=== PATIENT | male | born 1980 | race African-American/Black ===

== ENCOUNTER 2020-05-09 14:33 | Inpatient (IN) | payer MEDICAID ==
[~2020-05-09] VITALS: Ht 175.3 cm; Wt 73.5 kg
--- NOTE | 2020-05-09 08:38 | NUR ---
NURSE NOTES: Received pt awake,A&Ox4, and verbal. Pt has no sob,fever,cough and pain at the moment. Iv is intact and asymptomatic. Pt is ambulatory with steady gait. skin is intact. Bed is in the lowest position,locked and call light within reach. We will keep monitoring the pt. Addendum: 05/09/20 at 2148 by THOMAS BOYCE RN discard the note above. Wrong time
--- NOTE | 2020-05-09 14:52 | NUR ---
ED Nurse Note: Pt walked into ED with dysuria x2 weeks. He also has had white discharge in urine and stool. Pt had sexual intercourse 2 weeks ago. Pt is alert and orientedx4, ambulatory. Pt has been seen by CLARA.
--- NOTE | 2020-05-09 14:54 | NUR ---
ED Nurse Note: Pt states he is HIV +.
--- NOTE | 2020-05-09 14:56 | Emergency Room Report ---
History of Present Illness General Chief Complaint: Male Urogenital Problems Source: Patient Present Illness HPI 39-year-old male with history of HIV noncompliant with medications, unaware of the last time he had a CD4 or viral loads checked, here with 1 week of dysuria, hematuria, pus in stool, pus in urine. Patient is also felt generally weak during this time as well. States that he feels sharp pain in the suprapubic region while he is urinating but does not feel any discomfort otherwise. States that he noticed some pus mixed with his stool yesterday. Also feels generalized lower abdominal pain while he is defecating. He does not take any medications for the pain. No other alleviating or exacerbating factors. Munday subjective chills yesterday. No fevers, chest pain, palpitations, back pain, abdominal pain otherwise, nausea, vomiting. 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 Nursing Documentation-[facility] Past Medical History: No History, Except For Hx Hypertension: Yes Review of Systems All Other Systems: negative except mentioned in HPI Physical Exam Vital Signs Date Time Temp Pulse Resp B/P (MAP) Pulse Ox O2 Delivery O2 Flow Rate FiO2 05/09/20 14:38 98.2 116 18 103/65 (78) 95 Room Air Sp02 EP Interpretation: reviewed, normal General Appearance: no apparent distress, alert, non-toxic Head: normocephalic, atraumatic Eyes: bilateral eye normal inspection, bilateral eye PERRL ENT: hearing grossly normal, normal pharynx, no angioedema, normal voice Neck: full range of motion, supple/symm/no masses Respiratory: chest non-tender, lungs clear, normal breath sounds, speaking full sentences Cardiovascular #1: regular rate, rhythm, no edema Cardiovascular #2: 2+ carotid (R), 2+ carotid (L), 2+ radial (R), 2+ radial (L), 2+ dorsalis pedis (R), 2+ dorsalis pedis (L) Gastrointestinal: normal bowel sounds, soft, non-distended, no guarding, no rebound, other - Mild lower abdominal tenderness on palpation diffusely. No rebound or guarding. No distention Rectal: deferred Genitourinary: normal inspection, no CVA tenderness Musculoskeletal: back normal, normal range of motion, calf tenderness, gait/station normal, non-tender Neurologic: alert, motor strength/tone normal, oriented x3, sensory intact, responsive, speech normal Psychiatric: judgement/insight normal, memory normal, mood/affect normal, no suicidal/homicidal ideation Reflexes: 3+ bicep (R), 3+ bicep (L), 3+ tricep (R), 3+ tricep (L), 3+ knee (R), 3+ knee (L) Lymphatic: no adenopathy Medical Decision Making Diagnostic Impression: Primary Impression: Proctitis Additional Impressions: Cystitis HIV (human immunodeficiency virus infection) ER Course EKG: NSR tachycardic 112 bpm. T wave inversions in leads I, 2, aVL, V4, V5, V6. LVH criteria. intervals WNL. No ectopy Rhythm strip: patient monitored for arrhythmias - no malignant dysrhythmias, r uns of PVCs, nor pauses noted Laboratory Tests Test 05/09/20 15:03 05/09/20 15:05 Urine Color Red Urine Appearance Turbid Urine pH 5 (4.5-8.0) Urine Specific [place] 1.025 (1.005-1.035) Urine Protein 3+ (NEGATIVE) H Urine Glucose (UA) Negative (NEGATIVE) Urine Ketones 1+ (NEGATIVE) H Urine Blood 5+ (NEGATIVE) H Urine Nitrite Negative (NEGATIVE) Urine Bilirubin 1+ (NEGATIVE) H Urine Ictotest Negative (NEGATIVE) Urine Urobilinogen 4 MG/DL (0.0-1.0) H Urine Leukocyte Esterase 3+ (NEGATIVE) H Urine RBC Tntc /HPF (0 - 0) H Urine WBC Tntc /HPF (0 - 0) H Urine Squamous Epithelial Cells None /LPF (NONE/OCC) Urine Bacteria Many /HPF (NONE) H White Blood Count 7.8 K/UL (4.8-10.8) Red Blood Count 5.07 M/UL (4.70-6.10) Hemoglobin 15.0 G/DL (14.2-18.0) Hematocrit 45.6 % (42.0-52.0) Mean Corpuscular Volume 90 FL (80-99) Mean Corpuscular Hemoglobin 29.6 PG (27.0-31.0) Mean Corpuscular Hemoglobin Concent 33.0 G/DL (32.0-36.0) Red Cell Distribution Width 11.5 % (11.6-14.8) L Platelet Count 353 K/UL (150-450) Mean Platelet Volume 5.9 FL (6.5-10.1) L Neutrophils (%) (Auto) 74.7 % (45.0-75.0) Lymphocytes (%) (Auto) 16.3 % (20.0-45.0) L Monocytes (%) (Auto) 6.8 % (1.0-10.0) Eosinophils (%) (Auto) 0.4 % (0.0-3.0) Basophils (%) (Auto) 1.8 % (0.0-2.0) Sodium Level 138 MMOL/L (136-145) Potassium Level 4.0 MMOL/L (3.5-5.1) Chloride Level 100 MMOL/L (98-107) Carbon Dioxide Level 28 MMOL/L (21-32) Anion Gap 10 mmol/L (5-15) Blood Urea Nitrogen 16 mg/dL (7-18) Creatinine 1.8 MG/DL (0.55-1.30) H Estimated Glomerular Filtration Rate 50.9 mL/min (>60) Glucose Level 110 MG/DL (74-106) H Lactic Acid Level 1.30 mmol/L (0.4-2.0) Calcium Level 9.3 MG/DL (8.5-10.1) Total Bilirubin 0.4 MG/DL (0.2-1.0) Aspartate Amino Transferase (AST) 17 U/L (15-37) Alanine Aminotransferase (ALT) 24 U/L (12-78) Alkaline Phosphatase 60 U/L (46-116) Total Creatine Kinase 93 U/L (26-308) Creatine Kinase MB 0.9 NG/ML (0.0-3.6) Creatine Kinase MB Relative Index 0.9 Troponin I 0.015 ng/mL (0.000-0.056) Total Protein 8.7 G/DL (6.4-8.2) H Albumin 3.5 G/DL (3.4-5.0) Globulin 5.2 g/dL Albumin/Globulin Ratio 0.7 (1.0-2.7) L 39-year-old male with history of HIV noncompliant with medications here with dysuria and pus in stool. Urinalysis showed evidence of urinary tract infect ion. CT abdomen pelvis showed proctitis. Patient was started on ceftriaxone and azithromycin in the emergency department. Blood cultures currently pending. Urine cultures obtained and currently pending. No evidence of sepsis. Patient was given IV fluids. Troponin negative. EKG however did show T wave inversion in multiple leads. However patient clinically had no evidence of ACS. Was given aspirin in the emergency department. Admitted to [facility] in stable condition. Last Vital Signs Date Time Temp Pulse Resp B/P (MAP) Pulse Ox O2 Delivery O2 Flow Rate FiO2 05/09/20 14:38 98.2 116 18 103/65 (78) 95 Room Air Abilio Kaplan M.D. May 09, 2020 14:56
[2020-05-09 15:00] VITALS: BP 110/68
[2020-05-09] MEDS ORDERED: Omnipaque-300 100ml vial INJ PRN (15:00)
[2020-05-09 15:18] LABS: BASOPHILS % (AUTO) 1.8 % (0.0-2.0); EOSINOPHILS % (AUTO) 0.4 % (0.0-3.0); HEMATOCRIT 45.6 % (42.0-52.0); LYMPHOCYTES % (AUTO) 16.3 % (20.0-45.0); MEAN CORPUSCULAR VOLUME 90 FL (80-99); MONOCYTES % (AUTO) 6.8 % (1.0-10.0); NEUTROPHILS % (AUTO) 74.7 % (45.0-75.0); PLATELET COUNT 353 K/UL (150-450); RED BLOOD COUNT 5.07 M/UL (4.70-6.10); RED CELL DISTRIBUTION WIDTH 11.5 % (11.6-14.8); WHITE BLOOD COUNT 7.8 K/UL (4.8-10.8)
[2020-05-09 15:19] LABS: APPEARANCE,URINE TURBID; BILIRUBIN, URINE 1+ (NEGATIVE); GLUCOSE, URINE (UA) NEGATIVE (NEGATIVE); KETONES,URINE 1+ (NEGATIVE); LEUKOCYTE ESTERASE ,URINE 3+ (NEGATIVE); NITRITE,URINE NEGATIVE (NEGATIVE); PH,URINE 5 (4.5-8.0); PROTEIN,URINE 3+ (NEGATIVE); UROBILINOGEN,URINE 4 MG/DL (0.0-1.0)
[2020-05-09 15:28] LABS: CALCIUM 9.3 MG/DL (8.5-10.1); CREATININE 1.8 MG/DL (0.55-1.30)
[2020-05-09 15:42] LABS: COLOR,URINE RED
[2020-05-09 15:42] LABS: ALBUMIN 3.5 G/DL (3.4-5.0); ALBUMIN/GLOBULIN RATIO 0.7 (1.0-2.7); BILIRUBIN,TOTAL 0.4 MG/DL (0.2-1.0); CKMB 0.9 NG/ML (0.0-3.6)
[2020-05-09] MEDS ORDERED: cefTRIAXone 1 GM in NS 55 ML IVPB ONE (16:00)
--- NOTE | 2020-05-09 16:07 | Diagnostic Imaging Report ---
Indication: Shortness of Technique: One view of the chest Comparison: none Findings: Lungs and pleural spaces are clear. Heart size is normal. Impression: No acute process
[2020-05-09] MEDS ORDERED: Azithromycin 250mg tab ORAL ONE (16:15)
--- NOTE | 2020-05-09 16:41 | Diagnostic Imaging Report ---
Clinical Indication: Dysuria, hematuria, purulent stool and urine Technique: No oral contrast utilized, per emergency room physician request IV administration nonionic contrast. Venous phase spiral acquisition obtained through the abdomen and pelvis. Multiplanar reconstructions were generated. Total dose length product 278 mGycm. CTDIvol(s) 4 mGy. Dose reduction achieved using automated exposure control Comparison: none Findings: Lack of enteric contrast limits assessment of the GI tract. There is questionable thickening of the rectal wall, although this may be an artifact of under distention. No evidence of diverticulosis or diverticulitis. The appendix is not definitely visualized, but no findings to suggest acute appendicitis are evident. No small bowel distention. No free or loculated intraperitoneal gas or fluid is evident. The liver, gallbladder, bile ducts, pancreas, spleen, adrenals kidneys are unremarkable. No retroperitoneal or mesenteric mass or adenopathy. No pelvic mass or adenopathy. The bladder is equivocally slightly thick walled, but this is probably apparent due to lack of distention. Prominent nodes are seen in the bilateral inguinal regions The included lung bases demonstrate some posterior dependent atelectatic changes on the left. The heart is mildly enlarged and the left ventricle in particular appears dilated. The bones demonstrate degenerative changes of the lumbosacral junction. Impression: Limited assessment of the GI tract, due to lack of enteric contrast administration Apparent mild bladder wall thickening. Probably an artifact of lack of distention, but could indicate wall thickening due to cystitis given stated clinical history Very questionable rectal wall thickening, probably artifact of lack of distention, mild proctitis possible No acute abnormality otherwise Posterior dependent pulmonary atelectatic changes Mild cardiomegaly and left ventricular dilatation Nonspecific prominent but not frankly enlarged bilateral inguinal lymph nodes The CT scanner at [facility] is accredited by the [employer] and the scans are performed using protocols designed to limit radiation exposure to as low as reasonably achievable to attain images of sufficient resolution adequate for diagnostic evaluation.
[2020-05-09 18:09] VITALS: BP 112/76
[2020-05-09] MEDS ORDERED: Aspirin Baby 81mg ORAL ONE (18:45)
--- NOTE | 2020-05-09 18:48 | NUR ---
ED Nurse Note: Report given to Laila LEON.
--- NOTE | 2020-05-09 19:10 | NUR ---
ED Nurse Note: Report receiving from CAROLYN Hayes. Patient appears to be sleeping in bed, NAD. Will cont. to monitor.
[2020-05-09] MEDS ORDERED: Albuterol/Ipratropium 3ml neb HHN PRN (19:15)
[2020-05-09] MEDS ORDERED: Miralax 17gm pkt ORAL PRN (19:15)
--- NOTE | 2020-05-09 19:42 | NUR ---
NURSE HAND-OFF: Important Events on Shift: ER admission, report received at 1845, patient has not come up to the floor yet Patient Status: Diet: Pending Orders: Pending Results/Labs: Pending MD notification: Latest Vital Signs: Temperature 98.2 , Pulse 91 , B/P 112 /76 , Respiratory Rate 17 , O2 SAT 99 , Room Air, O2 Flow Rate . Vital Sign Comment: Latest Burger Fall Score: Fall Risk: Safety Measures: Call light , Bed Alarm , Side Rails , Bed position . Fall Precautions: Report given to Joshua LEON.
--- NOTE | 2020-05-09 20:35 | NUR ---
ED Nurse Note: Patient is stable for transfer to [facility] unit at this time. AAOX4, breathing is normal and unlabored. Patient taken to unit via gurney by tech. RAMIREZ noted. IV is intact. Patient took all belongings wit him.
--- NOTE | 2020-05-09 20:38 | NUR ---
NURSE NOTES: Received pt awake,A&Ox4, and verbal. Pt has no sob,fever,cough and pain at the moment. Iv is intact and asymptomatic. Pt is ambulatory with steady gait. skin is intact. Bed is in the lowest position,locked and call light within reach. We will keep monitoring the pt.
[2020-05-09] MEDS ORDERED: Cefepime HCl 2 GM in D5W 110 ML IV ONE (21:00)
[2020-05-09] MEDS: Heparin 5000 units/ml inj SUBQ SCH (21:33)
[2020-05-09] MEDS ORDERED: Vancomycin 1.25gm/NS Premix IVPB ONE (22:00)
[2020-05-10] VITALS: BP 105/70
[2020-05-10] MEDS ORDERED: Vancomycin 1 GM in D5W 275 ML IV SCH (00:30)
[2020-05-10 02:30] LABS: APPEARANCE,URINE SLIGHTLY CLOUDY; BILIRUBIN, URINE NEGATIVE (NEGATIVE); COLOR,URINE PALE YELLOW; GLUCOSE, URINE (UA) NEGATIVE (NEGATIVE); KETONES,URINE NEGATIVE (NEGATIVE); LEUKOCYTE ESTERASE ,URINE 3+ (NEGATIVE); NITRITE,URINE NEGATIVE (NEGATIVE); PH,URINE 6.5 (4.5-8.0); PROTEIN,URINE 2+ (NEGATIVE); UROBILINOGEN,URINE NORMAL MG/DL (0.0-1.0)
[2020-05-10 04:00] VITALS: BP 114/65
[2020-05-10 06:21] LABS: BASOPHILS % (AUTO) 0.5 % (0.0-2.0); EOSINOPHILS % (AUTO) 1.4 % (0.0-3.0); HEMATOCRIT 41.7 % (42.0-52.0); LYMPHOCYTES % (AUTO) 27.7 % (20.0-45.0); MEAN CORPUSCULAR VOLUME 86 FL (80-99); MONOCYTES % (AUTO) 7.3 % (1.0-10.0); NEUTROPHILS % (AUTO) 63.2 % (45.0-75.0); PLATELET COUNT 354 K/UL (150-450); RED BLOOD COUNT 4.85 M/UL (4.70-6.10); RED CELL DISTRIBUTION WIDTH 11.1 % (11.6-14.8); WHITE BLOOD COUNT 4.2 K/UL (4.8-10.8)
[2020-05-10 06:47] LABS: ALANINE AMINOTRANSFERASE 22 U/L (12-78); ALBUMIN 2.8 G/DL (3.4-5.0); ALBUMIN/GLOBULIN RATIO 0.6 (1.0-2.7); ALKALINE PHOSPHATASE 53 U/L (46-116); ANION GAP 9 mmol/L (5-15); ASPARTATE AMINO TRANSFERASE 16 U/L (15-37); BILIRUBIN,TOTAL 0.3 MG/DL (0.2-1.0); BLOOD UREA NITROGEN 13 mg/dL (7-18); CALCIUM 8.6 MG/DL (8.5-10.1); CARBON DIOXIDE 26 MMOL/L (21-32); CHLORIDE 106 MMOL/L (98-107); CREATININE 1.2 MG/DL (0.55-1.30); SODIUM 141 MMOL/L (136-145)
--- NOTE | 2020-05-10 07:32 | NUR ---
HAND-OFF: Report given to CAROLYN Galarza.
--- NOTE | 2020-05-10 07:35 | NUR ---
NURSE NOTES: Patient lying in bed sleeping. No complain of pain or distress at this time. IV dressing intact and dry. Bed lowest position. Call light within reach. Will continue to monitor.
[2020-05-10 08:00] VITALS: BP 108/62
[2020-05-10] MEDS ORDERED: Cefepime HCl 2 GM in D5W 110 ML IV SCH (09:00)
[2020-05-10] MEDS: Heparin 5000 units/ml inj SUBQ SCH ×2 (09:16→20:49)
--- NOTE | 2020-05-10 10:51 | NUR ---
CASE MANAGEMENT: INITIAL REVIEW 39YR OLD MALE FROM HOME CC:MALE UROGENITAL PROBLEMS; DYSURIA; PYURIA SI:PYELONEPHRITIS 98.5 116 18 103/65 95% ON RA CREAT 1.8 BG 110 URINE + PROTEIN + BLOOD+KETONES+RBC+ WBC+ BACTERIA +LEUKOCYTES IS:IVF NS BOLUS X1 IV ROCEPHIN X1 IV ZITHROMAX X1 ASA PO X1 CT Abdomen Pelvis w/Contrast-Limited assessment of the GI tract, due to lack of enteric contrast administration. Apparent mild bladder wall thickening. Probably an artifact of lack of distention,but could indicate wall thickening due to cystitis given stated clinical history. Very questionable rectal wall thickening, probably artifact of lack of distention, mild proctitis possible. No acute abnormality otherwise. Posterior dependent pulmonary atelectatic changes. Mild cardiomegaly and left ventricular dilatation. Nonspecific prominent but not frankly enlarged bilateral inguinal lymph nodes XRAY Chest 1v-No acute process \: 3E MED SURG UNIT DCP: HOME WHEN STABLE PLAN: Cultures ~in process CASE MANAGEMENT: REVIEW 05/10/20 SI:PROCTITIS . CYSTITIS . PYELONEPHRITIS 98.5 87 20 108/62 99% ON RA WBC 4.2 ALB 2.8 IS:IV VANCOMYCIN BID IV ANCEF QD HEPARIN SQ BID \: 3E MED SURG UNIT DCP: HOME WHEN STABLE PLAN: Cultures ~in process ID consult~R/O sepsis
--- NOTE | 2020-05-10 11:15 | Consultation ---
History of Present Illness General Date patient seen: May 10, 2020 Chief Complaint: Male Urogenital Problems Reason for Consultation: UTI Present Illness HPI Mr. Javier is a 39 yo male with PMhx of HIV ( Not med compliant) who presented with One weel of dysuria and hemauria with pus. He also reports pus in his stools. He has been aferbile and had no leukocytosis. He does reports some abd pain. CT abd showed mild bladder wall thicking. He does not know his last CD4 or viral loads but has been of med for quite some time. Has been offf/on intermittently. He last has sex about 2 week ago. Vaginal not Hx of receptive anal intercourse ID was consulted sepsis PMHx/PSHx HIV - Off meds HTN SocHx EtOH abuse FamHx Not contributory Allergies: Coded Allergies: SULFA (SULFONAMIDE ANTIBIOTICS) (Verified Allergy, Intermediate, rash, 05/09/20) Medication History Unable to Obtain Active Prescriptions or Reported Meds Patient History Healthcare decision maker N Resuscitation status Advanced Directive on File Review of Systems ROS Narrative 12 point ROS negative Except as noted in the HPI Physical Exam Last 24 Hour Vital Signs Date Time Temp Pulse Resp B/P (MAP) Pulse Ox O2 Delivery O2 Flow Rate FiO2 05/10/20 09:00 Room Air 05/10/20 08:00 98.5 87 20 108/62 (77) 99 05/10/20 04:00 98.4 85 20 114/65 (81) 95 05/10/20 00:00 97.8 79 20 105/70 (82) 98 05/09/20 21:08 Room Air 05/09/20 20:50 Room Air 05/09/20 20:35 98.5 87 18 100/54 100 Room Air 05/09/20 18:09 98.2 91 17 112/76 99 Room Air 05/09/20 15:00 98.2 85 16 110/68 97 Room Air 05/09/20 14:38 98.2 116 18 103/65 (78) 95 Room Air Intake and Output 05/09/20 05/10/20 19:00 07:00 Intake Total 0 ml 400 ml Output Total 400 ml Balance 0 ml 0 ml Intake Oral 0 ml 400 ml Output Urine Total 400 ml # Voids 1 Laboratory Tests Test 05/09/20 15:03 05/09/20 15:05 05/10/20 02:12 05/10/20 05:15 Urine Color Red Pale yellow Urine Appearance Turbid Slightly cloudy Urine pH 5 (4.5-8.0) 6.5 (4.5-8.0) Urine Specific [place] 1.025 (1.005-1.035) 1.015 (1.005-1.035) Urine Protein 3+ (NEGATIVE) H 2+ (NEGATIVE) H Urine Glucose (UA) Negative (NEGATIVE) Negative (NEGATIVE) Urine Ketones 1+ (NEGATIVE) H Negative (NEGATIVE) Urine Blood 5+ (NEGATIVE) H 5+ (NEGATIVE) H Urine Nitrite Negative (NEGATIVE) Negative (NEGATIVE) Urine Bilirubin 1+ (NEGATIVE) H Negative (NEGATIVE) Urine Ictotest Negative (NEGATIVE) Urine Urobilinogen 4 MG/DL (0.0-1.0) H Normal MG/DL (0.0-1.0) Urine Leukocyte Esterase 3+ (NEGATIVE) H 3+ (NEGATIVE) H Urine RBC Tntc /HPF (0 - 0) H Tntc /HPF (0 - 0) H Urine WBC Tntc /HPF (0 - 0) H 15-20 /HPF (0 - 0) H Urine Squamous Epithelial Cells None /LPF (NONE/OCC) Few /LPF (NONE/OCC) Urine Bacteria Many /HPF (NONE) H Moderate /HPF (NONE) H White Blood Count 7.8 K/UL (4.8-10.8) 4.2 K/UL (4.8-10.8) L Red Blood Count 5.07 M/UL (4.70-6.10) 4.85 M/UL (4.70-6.10) Hemoglobin 15.0 G/DL (14.2-18.0) 14.0 G/DL (14.2-18.0) L Hematocrit 45.6 % (42.0-52.0) 41.7 % (42.0-52.0) L Mean Corpuscular Volume 90 FL (80-99) 86 FL (80-99) Mean Corpuscular Hemoglobin 29.6 PG (27.0-31.0) 28.8 PG (27.0-31.0) Mean Corpuscular Hemoglobin Concent 33.0 G/DL (32.0-36.0) 33.6 G/DL (32.0-36.0) Red Cell Distribution Width 11.5 % (11.6-14.8) L 11.1 % (11.6-14.8) L Platelet Count 353 K/UL (150-450) 354 K/UL (150-450) Mean Platelet Volume 5.9 FL (6.5-10.1) L 5.5 FL (6.5-10.1) L Neutrophils (%) (Auto) 74.7 % (45.0-75.0) 63.2 % (45.0-75.0) Lymphocytes (%) (Auto) 16.3 % (20.0-45.0) L 27.7 % (20.0-45.0) Monocytes (%) (Auto) 6.8 % (1.0-10.0) 7.3 % (1.0-10.0) Eosinophils (%) (Auto) 0.4 % (0.0-3.0) 1.4 % (0.0-3.0) Basophils (%) (Auto) 1.8 % (0.0-2.0) 0.5 % (0.0-2.0) Sodium Level 138 MMOL/L (136-145) 141 MMOL/L (136-145) Potassium Level 4.0 MMOL/L (3.5-5.1) 4.0 MMOL/L (3.5-5.1) Chloride Level 100 MMOL/L (98-107) 106 MMOL/L (98-107) Carbon Dioxide Level 28 MMOL/L (21-32) 26 MMOL/L (21-32) Anion Gap 10 mmol/L (5-15) 9 mmol/L (5-15) Blood Urea Nitrogen 16 mg/dL (7-18) 13 mg/dL (7-18) Creatinine 1.8 MG/DL (0.55-1.30) H 1.2 MG/DL (0.55-1.30) Estimat Glomerular Filtration Rate 50.9 mL/min (>60) > 60 mL/min (>60) Glucose Level 110 MG/DL (74-106) H 99 MG/DL (74-106) Lactic Acid Level 1.30 mmol/L (0.4-2.0) Calcium Level 9.3 MG/DL (8.5-10.1) 8.6 MG/DL (8.5-10.1) Total Bilirubin 0.4 MG/DL (0.2-1.0) 0.3 MG/DL (0.2-1.0) Aspartate Amino Transf (AST/SGOT) 17 U/L (15-37) 16 U/L (15-37) Alanine Aminotransferase (ALT/SGPT) 24 U/L (12-78) 22 U/L (12-78) Alkaline Phosphatase 60 U/L (46-116) 53 U/L (46-116) Total Creatine Kinase 93 U/L (26-308) Creatine Kinase MB 0.9 NG/ML (0.0-3.6) Creatine Kinase MB Relative Index 0.9 Troponin I 0.015 ng/mL (0.000-0.056) Total Protein 8.7 G/DL (6.4-8.2) H 7.4 G/DL (6.4-8.2) Albumin 3.5 G/DL (3.4-5.0) 2.8 G/DL (3.4-5.0) L Globulin 5.2 g/dL 4.6 g/dL Albumin/Globulin Ratio 0.7 (1.0-2.7) L 0.6 (1.0-2.7) L Random Vancomycin Level 12.4 ug/mL Microbiology Date/Time Source Procedure Growth Status 05/09/20 15:03 Urine,Clean Catch Urine Culture - Preliminary NO GROWTH Resulted Height (Feet): 5 Height (Inches): 9.00 Weight (Pounds): 158 Medications Current Medications Medications (Trade) Dose Ordered Sig/Christianne Route PRN Reason Start Time Stop Time Status Last Admin Dose Admin Acetaminophen (Tylenol) 650 mg Q4H PRN ORAL fever 05/09/20 19:15 06/08/20 19:14 Albuterol/ Ipratropium (Albuterol/ Ipratropium) 3 ml Q4H PRN HHN Shortness of Breath 05/09/20 19:15 05/14/20 19:14 Cefepime HCl 2 gm/ Dextrose 110 ml @ 220 mls/hr Q24H IV 05/10/20 09:00 05/17/20 08:59 05/10/20 09:15 Heparin Sodium (Porcine) (Heparin 5000 units/ml) 5,000 units EVERY 12 HOURS SUBQ 05/09/20 21:00 06/23/20 20:59 05/10/20 09:16 Iohexol (OMNIPAQUE-300 100ml) 100 ml NOW PRN INJ Radiology Procedure 05/09/20 15:00 05/11/20 14:59 Ondansetron HCl (Zofran) 4 mg Q6H PRN IVP Nausea & Vomiting 05/09/20 19:15 06/08/20 19:14 Polyethylene Glycol (Miralax) 17 gm DAILYPRN PRN ORAL Constipation 05/09/20 19:15 06/08/20 19:14 Temazepam (Restoril) 15 mg HSPRN PRN ORAL Insomnia 05/09/20 19:15 05/16/20 19:14 Vancomycin HCl (Vanco pharmacy to dose) 1 ea DAILY PRN MISC Per rx protocol 05/09/20 19:30 06/08/20 19:29 Vancomycin HCl 500 mg/Sodium Chloride 100 ml @ 100 mls/hr Q12HR@0900,2100 IVPB 05/10/20 09:00 05/15/20 08:59 05/10/20 09:15 Objective Narrative GEN: NAD on RA HEENT: NCAT, MMM, EOMI, No scleral icterus, Eyes with conjunctivitis B/L Neck: Supple no LAD HEART: RRR, S1, S2 PULM: CTAB, No W : Patient refused ABD: Soft, Mild suprpubic tenderness, ND, +BS EXT: No C/C/E, 2+ Pulses B/L NEURO: A/O x 3 No focal deficits Assessment/Plan Assessment/Plan: 39 yo male with PMhx of HIV ( Not med compliant) who presented with One week of dysuria and hematuria with pus. UTI and proctitis Likely STD - Tyrese or Chl No fever No leukcoytosis HIV - Off meds HTN Plan - Continue Ceftriaxone IV #2 pending Urine Cx - 05/09/20 S/P Azithromycin 1G PO - f/u GC/Ch probes - f/u HIV VL and CD4 counts - f/u Urine Cultures - Monitor CBC and Temps Thank you for this consult. [facility] will continue to follow Ms. Zuniga with you during her hospitalization. Balwinder Izaguirre MD May 10, 2020 11:15
--- NOTE | 2020-05-10 11:54 | Consultation ---
History of Present Illness General Date patient seen: May 10, 2020 Chief Complaint: Male Urogenital Problems Reason for Consultation: UTI Present Illness HPI 39-year-old male with history of HIV noncompliant with medications presented to ER with CC of 1 week of dysuria, hematuria, pus in stool, pus in urine. Patient is also felt generally weak during this time as well. States that he f eels sharp pain in the suprapubic region while he is urinating. He noticed some pus mixed with his stool yesterday. Also feels generalized lower abdominal pain while he is defecating. Allergies: Coded Allergies: SULFA (SULFONAMIDE ANTIBIOTICS) (Verified Allergy, Intermediate, rash, 05/09/20) Medication History Unable to Obtain Active Prescriptions or Reported Meds Patient History Healthcare decision maker N Resuscitation status Advanced Directive on File Past Medical/Surgical History Past Medical/Surgical History: (1) HIV (human immunodeficiency virus infection) Review of Systems All Other Systems: negative except mentioned in HPI Physical Exam General Appearance: thin Lines, tubes and drains: peripheral, central line HEENT: normocephalic, anicteric Neck: non-tender, normal alignment Respiratory/Chest: chest wall non-tender, normal breath sounds Cardiovascular/Chest: normal peripheral pulses, normal rate Abdomen: normal bowel sounds, non tender Genitourinary/Rectal: normal genital exam, normal rectal exam Extremities: normal range of motion Last 24 Hour Vital Signs Date Time Temp Pulse Resp B/P (MAP) Pulse Ox O2 Delivery O2 Flow Rate FiO2 05/10/20 09:00 Room Air 05/10/20 08:00 98.5 87 20 108/62 (77) 99 05/10/20 04:00 98.4 85 20 114/65 (81) 95 05/10/20 00:00 97.8 79 20 105/70 (82) 98 05/09/20 21:08 Room Air 05/09/20 20:50 Room Air 05/09/20 20:35 98.5 87 18 100/54 100 Room Air 05/09/20 18:09 98.2 91 17 112/76 99 Room Air 05/09/20 15:00 98.2 85 16 110/68 97 Room Air 05/09/20 14:38 98.2 116 18 103/65 (78) 95 Room Air Intake and Output 05/09/20 05/10/20 19:00 07:00 Intake Total 0 ml 400 ml Output Total 400 ml Balance 0 ml 0 ml Intake Oral 0 ml 400 ml Output Urine Total 400 ml # Voids 1 Laboratory Tests Test 05/09/20 15:03 05/09/20 15:05 05/10/20 02:12 05/10/20 02:15 Urine Color Red Pale yellow Urine Appearance Turbid Slightly cloudy Urine pH 5 (4.5-8.0) 6.5 (4.5-8.0) Urine Specific [place] 1.025 (1.005-1.035) 1.015 (1.005-1.035) Urine Protein 3+ (NEGATIVE) H 2+ (NEGATIVE) H Urine Glucose (UA) Negative (NEGATIVE) Negative (NEGATIVE) Urine Ketones 1+ (NEGATIVE) H Negative (NEGATIVE) Urine Blood 5+ (NEGATIVE) H 5+ (NEGATIVE) H Urine Nitrite Negative (NEGATIVE) Negative (NEGATIVE) Urine Bilirubin 1+ (NEGATIVE) H Negative (NEGATIVE) Urine Ictotest Negative (NEGATIVE) Urine Urobilinogen 4 MG/DL (0.0-1.0) H Normal MG/DL (0.0-1.0) Urine Leukocyte Esterase 3+ (NEGATIVE) H 3+ (NEGATIVE) H Urine RBC Tntc /HPF (0 - 0) H Tntc /HPF (0 - 0) H Urine WBC Tntc /HPF (0 - 0) H 15-20 /HPF (0 - 0) H Urine Squamous Epithelial Cells None /LPF (NONE/OCC) Few /LPF (NONE/OCC) Urine Bacteria Many /HPF (NONE) H Moderate /HPF (NONE) H White Blood Count 7.8 K/UL (4.8-10.8) Red Blood Count 5.07 M/UL (4.70-6.10) Hemoglobin 15.0 G/DL (14.2-18.0) Hematocrit 45.6 % (42.0-52.0) Mean Corpuscular Volume 90 FL (80-99) Mean Corpuscular Hemoglobin 29.6 PG (27.0-31.0) Mean Corpuscular Hemoglobin Concent 33.0 G/DL (32.0-36.0) Red Cell Distribution Width 11.5 % (11.6-14.8) L Platelet Count 353 K/UL (150-450) Mean Platelet Volume 5.9 FL (6.5-10.1) L Neutrophils (%) (Auto) 74.7 % (45.0-75.0) Lymphocytes (%) (Auto) 16.3 % (20.0-45.0) L Monocytes (%) (Auto) 6.8 % (1.0-10.0) Eosinophils (%) (Auto) 0.4 % (0.0-3.0) Basophils (%) (Auto) 1.8 % (0.0-2.0) Sodium Level 138 MMOL/L (136-145) Potassium Level 4.0 MMOL/L (3.5-5.1) Chloride Level 100 MMOL/L (98-107) Carbon Dioxide Level 28 MMOL/L (21-32) Anion Gap 10 mmol/L (5-15) Blood Urea Nitrogen 16 mg/dL (7-18) Creatinine 1.8 MG/DL (0.55-1.30) H Estimat Glomerular Filtration Rate 50.9 mL/min (>60) Glucose Level 110 MG/DL (74-106) H Lactic Acid Level 1.30 mmol/L (0.4-2.0) Calcium Level 9.3 MG/DL (8.5-10.1) Total Bilirubin 0.4 MG/DL (0.2-1.0) Aspartate Amino Transf (AST/SGOT) 17 U/L (15-37) Alanine Aminotransferase (ALT/SGPT) 24 U/L (12-78) Alkaline Phosphatase 60 U/L (46-116) Total Creatine Kinase 93 U/L (26-308) Creatine Kinase MB 0.9 NG/ML (0.0-3.6) Creatine Kinase MB Relative Index 0.9 Troponin I 0.015 ng/mL (0.000-0.056) Total Protein 8.7 G/DL (6.4-8.2) H Albumin 3.5 G/DL (3.4-5.0) Globulin 5.2 g/dL Albumin/Globulin Ratio 0.7 (1.0-2.7) L Chlamydia trachomatis RNA Pending Neisseria gonorrhoeae RNA Pending Test 05/10/20 05:15 White Blood Count 4.2 K/UL (4.8-10.8) L Red Blood Count 4.85 M/UL (4.70-6.10) Hemoglobin 14.0 G/DL (14.2-18.0) L Hematocrit 41.7 % (42.0-52.0) L Mean Corpuscular Volume 86 FL (80-99) Mean Corpuscular Hemoglobin 28.8 PG (27.0-31.0) Mean Corpuscular Hemoglobin Concent 33.6 G/DL (32.0-36.0) Red Cell Distribution Width 11.1 % (11.6-14.8) L Platelet Count 354 K/UL (150-450) Mean Platelet Volume 5.5 FL (6.5-10.1) L Neutrophils (%) (Auto) 63.2 % (45.0-75.0) Lymphocytes (%) (Auto) 27.7 % (20.0-45.0) Monocytes (%) (Auto) 7.3 % (1.0-10.0) Eosinophils (%) (Auto) 1.4 % (0.0-3.0) Basophils (%) (Auto) 0.5 % (0.0-2.0) Sodium Level 141 MMOL/L (136-145) Potassium Level 4.0 MMOL/L (3.5-5.1) Chloride Level 106 MMOL/L (98-107) Carbon Dioxide Level 26 MMOL/L (21-32) Anion Gap 9 mmol/L (5-15) Blood Urea Nitrogen 13 mg/dL (7-18) Creatinine 1.2 MG/DL (0.55-1.30) Estimat Glomerular Filtration Rate > 60 mL/min (>60) Glucose Level 99 MG/DL (74-106) Calcium Level 8.6 MG/DL (8.5-10.1) Total Bilirubin 0.3 MG/DL (0.2-1.0) Aspartate Amino Transf (AST/SGOT) 16 U/L (15-37) Alanine Aminotransferase (ALT/SGPT) 22 U/L (12-78) Alkaline Phosphatase 53 U/L (46-116) Total Protein 7.4 G/DL (6.4-8.2) Albumin 2.8 G/DL (3.4-5.0) L Globulin 4.6 g/dL Albumin/Globulin Ratio 0.6 (1.0-2.7) L Random Vancomycin Level 12.4 ug/mL Microbiology Date/Time Source Procedure Growth Status 05/09/20 15:03 Urine,Clean Catch Urine Culture - Preliminary NO GROWTH Resulted Height (Feet): 5 Height (Inches): 9.00 Weight (Pounds): 158 Medications Current Medications Medications (Trade) Dose Ordered Sig/Christianne Route PRN Reason Start Time Stop Time Status Last Admin Dose Admin Acetaminophen (Tylenol) 650 mg Q4H PRN ORAL fever 05/09/20 19:15 06/08/20 19:14 Albuterol/ Ipratropium (Albuterol/ Ipratropium) 3 ml Q4H PRN HHN Shortness of Breath 05/09/20 19:15 05/14/20 19:14 Ceftriaxone Sodium 1 gm/ Dextrose 55 ml @ 110 mls/hr Q24H IVPB 05/10/20 13:00 05/17/20 12:59 Heparin Sodium (Porcine) (Heparin 5000 units/ml) 5,000 units EVERY 12 HOURS SUBQ 05/09/20 21:00 06/23/20 20:59 05/10/20 09:16 Iohexol (OMNIPAQUE-300 100ml) 100 ml NOW PRN INJ Radiology Procedure 05/09/20 15:00 05/11/20 14:59 Ondansetron HCl (Zofran) 4 mg Q6H PRN IVP Nausea & Vomiting 05/09/20 19:15 06/08/20 19:14 Polyethylene Glycol (Miralax) 17 gm DAILYPRN PRN ORAL Constipation 05/09/20 19:15 06/08/20 19:14 Temazepam (Restoril) 15 mg HSPRN PRN ORAL Insomnia 05/09/20 19:15 05/16/20 19:14 Assessment/Plan Problem List: (1) Cystitis ICD Codes: N30.90 - Cystitis, unspecified without hematuria SNOMED: 79288237 (2) Proctitis ICD Codes: K62.89 - Other specified diseases of anus and rectum SNOMED: 5557403 (3) HIV (human immunodeficiency virus infection) ICD Codes: B20 - Human immunodeficiency virus [HIV] disease SNOMED: 90365830 Assessment/Plan: wan culture iv abx ID evaluation check electrolytes dvt prophylaxis/ Bambi Godoy MD May 10, 2020 11:54
[2020-05-10 12:00] VITALS: BP 101/68
[2020-05-10] MEDS: cefTRIAXone 1 GM in D5W 55 ML IVPB SCH (12:39)
--- NOTE | 2020-05-10 12:59 | NUR ---
NURSE NOTES: Collected Urine specimen for Gonorrhea and Chlamydia and sent to lab.
--- NOTE | 2020-05-10 15:08 | NUR ---
INSURANCE CLINICALS/INTERQUAL FAXED TO [facility] P:[phone] F:[phone]
[2020-05-10 16:00] VITALS: BP 105/65
--- NOTE | 2020-05-10 16:30 | History & Physical ---
History and Physical History & Physicial job # [id number] Clayton Dietrich MD May 10, 2020 16:30
--- NOTE | 2020-05-10 19:20 | NUR ---
NURSE NOTES: Received report from Gavin LEON. Pt. is in bed, awake, alert and oriented. No sob noted. Denies any pain at this time. With bed in it's lowest position, with alarm on and locked. Will continue to monitor pt.
--- NOTE | 2020-05-10 19:30 | NUR ---
NURSE HAND-OFF: Important Events on Shift: Urine specimen collected Patient Status: Stable Diet: Regular Pending Orders: N/A Pending Results/Labs: Gonorrhea and Chlamydia Pending MD notification: N/A Latest Vital Signs: Temperature 98.2 , Pulse 89 , B/P 105 /65 , Respiratory Rate 20 , O2 SAT 99 , Room Air, O2 Flow Rate . Vital Sign Comment: Stable Latest Burger Fall Score: 35 Fall Risk: Medium Risk Safety Measures: Call light Within Reach, Bed Alarm , Side Rails Side Rails x2, Bed position Low and Locked. Fall Precautions: Yellow Socks Door Sign Patient Fall Education Report given to Eileen LEON. Patient in stable condition.
[2020-05-10 20:00] VITALS: BP 106/71
--- NOTE | 2020-05-10 21:00 | History and Physical Report ---
DATE OF ADMISSION: 05/09/2020 CHIEF COMPLAINT: Dysuria, frequency, and infection in the urine. HISTORY OF PRESENT ILLNESS: This is a 39-year-old gentleman with past medical history significant for HIV, noncompliance with medication, no CD4 count or viral load who presented to the emergency department with complaint one week of dysuria, hematuria, pus in the stool, and pus in the urine. The patient felt very weak and felt sharp pain in the suprapubic area. While he is urinating, he feels discomfort and he stated that he had mucus with stool and generally lower abdominal discomfort with defecation. He denies taking any medication for pain. Shortly after initial evaluation in the emergency department, the patient was admitted to the hospital with proctitis, cystitis in immunosuppressed patient with HIV. PAST MEDICAL HISTORY/PAST SURGICAL HISTORY: HIV. MEDICATIONS AT HOME: None. ALLERGIES: Sulfa. SOCIAL HISTORY: The patient currently smokes 1-1/3 a pack of cigarettes a day. Denies any alcohol or substance abuse. He is unemployed. FAMILY HISTORY: Hypertension runs in the family. REVIEW OF SYSTEMS: Mostly as above. PHYSICAL EXAMINATION: VITAL SIGNS: On admission, temperature 98.2, pulse 116, respirations 18, and blood pressure 103/65. GENERAL: The patient is awake, responsive, no acute distress. HEENT: Head and neck examination, pupils are equal and reactive to light. Extraocular movements are intact. Neck was supple. No JVD. LUNGS: Good air entry. No wheezing or rales. HEART: S1, S2. Regular rhythm. No murmur or gallops. ABDOMEN: Soft and nondistended. Tender on the suprapubic area on deep palpation. No rebound tenderness. No fluid shift. EXTREMITIES: No cyanosis, clubbing, or edema. NEUROLOGIC: Cranial nerves II through XII grossly normal. Motor is 5/5 in all extremities. LABORATORY AND DIAGNOSTIC DATA: Laboratory on admission, WBC of 7.8, hemoglobin 15, hematocrit 45, platelets is 353. Sodium 138, potassium 4.0, chloride 100, bicarbonate 28, BUN 16, creatinine 1.8, GFR 50, glucose is 110. Troponin 0.015. AST of 17, ALT of 24, alkaline phosphatase 60. Urinalysis, +5 blood, +1 ketone, tainted rbc, tainted wbc, many bacteria. CT scan of the abdomen and pelvic noted the patient has limited assessment for GI tract due to the lack of enteric contrast, apparent mild bladder wall thickening, probably artifact of the lack of distention, but could indicate a wall thickness due to the cystitis, very questionable rectal wall thickening, probably artifact, no acute abnormality was identified, posterior dependent pulmonary atelectasis, mild cardiomegaly with left ventricular dilatation, nonspecific prominence, but not frankly enlarged bilateral inguinal lymph nodes. ASSESSMENT: 1. Sepsis secondary to urinary tract infection. 2. Possible proctitis. 3. HIV. 4. Noncompliance with medication. PLAN: Admit the patient to medical floor. We will follow up with the cultures and laboratory. Start the patient on broad-spectrum antibiotic with Rocephin. Code status is Full code DVT prophylaxis with heparin subcutaneous. We will followup with Dr. Godoy, Pulmonary Critical Care and Dr. Izaguirre from ID recommendation. Clayton Dietrich M.D. DR: Marcella JOB#: [id number] CC:
--- NOTE | 2020-05-10 23:05 | NUR ---
NURSE NOTES: Due meds given. Slept @ long intervals. Denies any pain. No untoward s/s noted. Able to ambulate to use bathroom. Voiding freely. Will continue to monitor.
[2020-05-11] VITALS: BP 114/75
[2020-05-11 06:00] LABS: HEMATOCRIT 42.3 % (42.0-52.0); HEMOGLOBIN 14.1 G/DL (14.2-18.0); MEAN CORPUSCULAR VOLUME 86 FL (80-99); PLATELET COUNT 346 K/UL (150-450); RED BLOOD COUNT 4.92 M/UL (4.70-6.10); RED CELL DISTRIBUTION WIDTH 10.8 % (11.6-14.8); WHITE BLOOD COUNT 3.1 K/UL (4.8-10.8)
[2020-05-11 06:56] LABS: ALANINE AMINOTRANSFERASE 16 U/L (12-78); ALBUMIN 2.7 G/DL (3.4-5.0); ALBUMIN/GLOBULIN RATIO 0.6 (1.0-2.7); ALKALINE PHOSPHATASE 51 U/L (46-116); ANION GAP 8 mmol/L (5-15); ASPARTATE AMINO TRANSFERASE 17 U/L (15-37); BILIRUBIN,TOTAL 0.2 MG/DL (0.2-1.0); BLOOD UREA NITROGEN 11 mg/dL (7-18); CALCIUM 8.4 MG/DL (8.5-10.1); CARBON DIOXIDE 25 MMOL/L (21-32); CHLORIDE 106 MMOL/L (98-107); CREATININE 1.1 MG/DL (0.55-1.30); PHOSPHORUS 2.7 MG/DL (2.5-4.9); POTASSIUM 3.9 MMOL/L (3.5-5.1); SODIUM 139 MMOL/L (136-145)
--- NOTE | 2020-05-11 07:06 | NUR ---
NURSE HAND-OFF: Important Events on Shift:pain mngt; urine monitoring Patient Status: stable Diet: Reg. Pending Orders: Pending Results/Labs:Vanco Trough, C- reactive,Phos;cbc,Mg, cmp,sr fish camp. Pending MD notification: Latest Vital Signs: Temperature 97.6 , Pulse 83 , B/P 114 /75 , Respiratory Rate 17 , O2 SAT 100 , Room Air, O2 Flow Rate . Vital Sign Comment: stable Latest Burger Fall Score: 35 Fall Risk: Medium Risk Safety Measures: Call light Within Reach, Bed Alarm , Side Rails Side Rails x2, Bed position Low and Locked. Fall Precautions: Yellow Socks Door Sign Patient Fall Education Report given to Gavin GARCÍA.
--- NOTE | 2020-05-11 07:30 | NUR ---
NURSE NOTES: Patient lying in bed sleeping. No sign and symptoms of pain or distress at this time. IV dressing intact and dry. Bed lowest position. Call light within reach. Will continue to monitor.
[2020-05-11 08:00] VITALS: BP 100/69
[2020-05-11] MEDS: Heparin 5000 units/ml inj SUBQ SCH (08:59)
--- NOTE | 2020-05-11 09:13 | Infectious Diseases Prog Note ---
Assessment/Plan 39 yo male with PMhx of HIV ( Not med compliant) who presented with One week of dysuria and hematuria with pus. UTI and proctitis Likely STD - Tyrese or Chl No fever No leukcoytosis HIV - Off meds HTN Plan - Continue Ceftriaxone IV #3 pending Urine Cx - 05/09/20 S/P Azithromycin 1G PO - f/u GC/Ch probes - f/u HIV VL and CD4 counts - f/u Urine Cultures - Monitor CBC and Temps Thank you for this consult. [facility] will continue to follow Ms. Zuniga with you during her hospitalization. Subjective Allergies: Coded Allergies: SULFA (SULFONAMIDE ANTIBIOTICS) (Verified Allergy, Intermediate, rash, 05/09/20) Afebrile MANI No Leukocytosis Objective Last 24 Hour Vital Signs Date Time Temp Pulse Resp B/P (MAP) Pulse Ox O2 Delivery O2 Flow Rate FiO2 05/11/20 08:00 97.4 87 18 100/69 (79) 97 05/11/20 00:00 97.6 83 17 114/75 (88) 100 05/10/20 21:00 Room Air 05/10/20 20:00 98.7 83 16 106/71 (83) 98 05/10/20 16:00 98.2 89 20 105/65 (78) 99 05/10/20 12:00 97.8 90 20 101/68 (79) 99 Height (Feet): 5 Height (Inches): 9.00 Weight (Pounds): 158 GEN: NAD on RA HEENT: NCAT, MMM, EOMI CHEST Equal rise and fall B/L ABD: Soft NT Microbiology Date/Time Source Procedure Growth Status 05/10/20 02:12 Indwelling Cath Urine Culture - Preliminary NO GROWTH AFTER 24 HOURS Resulted 05/09/20 15:05 Blood Blood Culture - Preliminary NO GROWTH AFTER 24 HOURS Resulted 05/09/20 15:03 Urine,Clean Catch Urine Culture - Final Mixed Gram Positive Organism Complete 05/09/20 14:50 Blood Blood Culture - Preliminary NO GROWTH AFTER 24 HOURS Resulted Laboratory Tests Test 05/11/20 04:45 White Blood Count 3.1 K/UL (4.8-10.8) L Red Blood Count 4.92 M/UL (4.70-6.10) Hemoglobin 14.1 G/DL (14.2-18.0) L Hematocrit 42.3 % (42.0-52.0) Mean Corpuscular Volume 86 FL (80-99) Mean Corpuscular Hemoglobin 28.6 PG (27.0-31.0) Mean Corpuscular Hemoglobin Concent 33.3 G/DL (32.0-36.0) Red Cell Distribution Width 10.8 % (11.6-14.8) L Platelet Count 346 K/UL (150-450) Mean Platelet Volume 5.0 FL (6.5-10.1) L Neutrophils (%) (Auto) % (45.0-75.0) Lymphocytes (%) (Auto) % (20.0-45.0) Monocytes (%) (Auto) % (1.0-10.0) Eosinophils (%) (Auto) % (0.0-3.0) Basophils (%) (Auto) % (0.0-2.0) Lymphocytes Pending Erythrocyte Sedimentation Rate 113 MM/HR (0-15) H Sodium Level 139 MMOL/L (136-145) Potassium Level 3.9 MMOL/L (3.5-5.1) Chloride Level 106 MMOL/L (98-107) Carbon Dioxide Level 25 MMOL/L (21-32) Anion Gap 8 mmol/L (5-15) Blood Urea Nitrogen 11 mg/dL (7-18) Creatinine 1.1 MG/DL (0.55-1.30) Estimat Glomerular Filtration Rate > 60 mL/min (>60) Glucose Level 91 MG/DL (74-106) Calcium Level 8.4 MG/DL (8.5-10.1) L Phosphorus Level 2.7 MG/DL (2.5-4.9) Magnesium Level 2.1 MG/DL (1.8-2.4) Total Bilirubin 0.2 MG/DL (0.2-1.0) Aspartate Amino Transf (AST/SGOT) 17 U/L (15-37) Alanine Aminotransferase (ALT/SGPT) 16 U/L (12-78) Alkaline Phosphatase 51 U/L (46-116) C-Reactive Protein, Quantitative 2.7 mg/dL (0.00-0.90) H Total Protein 7.2 G/DL (6.4-8.2) Albumin 2.7 G/DL (3.4-5.0) L Globulin 4.5 g/dL Albumin/Globulin Ratio 0.6 (1.0-2.7) L Percent CD3 Cells Pending Absolute CD3 Count Pending Percent CD4 Cells Pending Absolute CD4 Count Pending T-Lymphocyte CD4/CD8 Ratio Pending Percent CD8 Cells Pending Absolute CD8 Count Pending HIV-1 RNA (PCR) log10 Value Pending HIV-1 RNA Ultraquantitative (PCR) Pending Current Medications Medications (Trade) Dose Ordered Sig/Christianne Route PRN Reason Start Time Stop Time Status Last Admin Dose Admin Acetaminophen (Tylenol) 650 mg Q4H PRN ORAL fever 05/09/20 19:15 06/08/20 19:14 Albuterol/ Ipratropium (Albuterol/ Ipratropium) 3 ml Q4H PRN HHN Shortness of Breath 05/09/20 19:15 05/14/20 19:14 Ceftriaxone Sodium 1 gm/ Dextrose 55 ml @ 110 mls/hr Q24H IVPB 05/10/20 13:00 05/17/20 12:59 05/10/20 12:39 Heparin Sodium (Porcine) (Heparin 5000 units/ml) 5,000 units EVERY 12 HOURS SUBQ 05/09/20 21:00 06/23/20 20:59 05/11/20 08:59 Iohexol (OMNIPAQUE-300 100ml) 100 ml NOW PRN INJ Radiology Procedure 05/09/20 15:00 05/11/20 14:59 Ondansetron HCl (Zofran) 4 mg Q6H PRN IVP Nausea & Vomiting 05/09/20 19:15 06/08/20 19:14 Polyethylene Glycol (Miralax) 17 gm DAILYPRN PRN ORAL Constipation 05/09/20 19:15 06/08/20 19:14 Temazepam (Restoril) 15 mg HSPRN PRN ORAL Insomnia 05/09/20 19:15 05/16/20 19:14 Balwinder Izaguirre MD May 11, 2020 09:13
--- NOTE | 2020-05-11 10:31 | NUR ---
NURSE NOTES: Spoke to regarding patient and Patient cleared to discharge Infectious Disease standpoint. Order read back and carried out.
[2020-05-11 12:00] VITALS: BP 117/68
--- NOTE | 2020-05-11 12:23 | Internal Med Progress Note ---
Subjective Date of Service: May 11, 2020 Physician Name Júnior Disla Attending Physician Clayton Dietrich MD Current Medications Medications (Trade) Dose Ordered Sig/Christianne Route PRN Reason Start Time Stop Time Status Last Admin Dose Admin Acetaminophen (Tylenol) 650 mg Q4H PRN ORAL fever 05/09/20 19:15 06/08/20 19:14 Albuterol/ Ipratropium (Albuterol/ Ipratropium) 3 ml Q4H PRN HHN Shortness of Breath 05/09/20 19:15 05/14/20 19:14 Ceftriaxone Sodium 1 gm/ Dextrose 55 ml @ 110 mls/hr Q24H IVPB 05/10/20 13:00 05/17/20 12:59 05/10/20 12:39 Heparin Sodium (Porcine) (Heparin 5000 units/ml) 5,000 units EVERY 12 HOURS SUBQ 05/09/20 21:00 06/23/20 20:59 05/11/20 08:59 Iohexol (OMNIPAQUE-300 100ml) 100 ml NOW PRN INJ Radiology Procedure 05/09/20 15:00 05/11/20 14:59 Ondansetron HCl (Zofran) 4 mg Q6H PRN IVP Nausea & Vomiting 05/09/20 19:15 06/08/20 19:14 Polyethylene Glycol (Miralax) 17 gm DAILYPRN PRN ORAL Constipation 05/09/20 19:15 06/08/20 19:14 Temazepam (Restoril) 15 mg HSPRN PRN ORAL Insomnia 05/09/20 19:15 05/16/20 19:14 Allergies: Coded Allergies: SULFA (SULFONAMIDE ANTIBIOTICS) (Verified Allergy, Intermediate, rash, 05/09/20) ROS Limited/Unobtainable: No Constitutional: Reports: no symptoms HEENT: Reports: no symptoms Cardiovascular: Reports: no symptoms Respiratory: Reports: no symptoms Gastrointestinal/Abdominal: Reports: other - rectal pain Genitourinary: Reports: pain Subjective 39 YO M with H/O HIV admitted with dysuria and rectal pain. Now UTI and proctitis. Cover for Int Ed-Dr Dietrich Objective Last Vital Signs Date Time Temp Pulse Resp B/P (MAP) Pulse Ox O2 Delivery O2 Flow Rate FiO2 05/11/20 09:00 Room Air 05/11/20 08:00 97.4 87 18 100/69 (79) 97 Laboratory Tests Test 05/11/20 04:45 White Blood Count 3.1 K/UL (4.8-10.8) L Red Blood Count 4.92 M/UL (4.70-6.10) Hemoglobin 14.1 G/DL (14.2-18.0) L Hematocrit 42.3 % (42.0-52.0) Mean Corpuscular Volume 86 FL (80-99) Mean Corpuscular Hemoglobin 28.6 PG (27.0-31.0) Mean Corpuscular Hemoglobin Concent 33.3 G/DL (32.0-36.0) Red Cell Distribution Width 10.8 % (11.6-14.8) L Platelet Count 346 K/UL (150-450) Mean Platelet Volume 5.0 FL (6.5-10.1) L Neutrophils (%) (Auto) % (45.0-75.0) Lymphocytes (%) (Auto) % (20.0-45.0) Monocytes (%) (Auto) % (1.0-10.0) Eosinophils (%) (Auto) % (0.0-3.0) Basophils (%) (Auto) % (0.0-2.0) Lymphocytes Pending Erythrocyte Sedimentation Rate 113 MM/HR (0-15) H Sodium Level 139 MMOL/L (136-145) Potassium Level 3.9 MMOL/L (3.5-5.1) Chloride Level 106 MMOL/L (98-107) Carbon Dioxide Level 25 MMOL/L (21-32) Anion Gap 8 mmol/L (5-15) Blood Urea Nitrogen 11 mg/dL (7-18) Creatinine 1.1 MG/DL (0.55-1.30) Estimat Glomerular Filtration Rate > 60 mL/min (>60) Glucose Level 91 MG/DL (74-106) Calcium Level 8.4 MG/DL (8.5-10.1) L Phosphorus Level 2.7 MG/DL (2.5-4.9) Magnesium Level 2.1 MG/DL (1.8-2.4) Total Bilirubin 0.2 MG/DL (0.2-1.0) Aspartate Amino Transf (AST/SGOT) 17 U/L (15-37) Alanine Aminotransferase (ALT/SGPT) 16 U/L (12-78) Alkaline Phosphatase 51 U/L (46-116) C-Reactive Protein, Quantitative 2.7 mg/dL (0.00-0.90) H Total Protein 7.2 G/DL (6.4-8.2) Albumin 2.7 G/DL (3.4-5.0) L Globulin 4.5 g/dL Albumin/Globulin Ratio 0.6 (1.0-2.7) L Percent CD3 Cells Pending Absolute CD3 Count Pending Percent CD4 Cells Pending Absolute CD4 Count Pending T-Lymphocyte CD4/CD8 Ratio Pending Percent CD8 Cells Pending Absolute CD8 Count Pending HIV-1 RNA (PCR) log10 Value Pending HIV-1 RNA Ultraquantitative (PCR) Pending Microbiology Date/Time Source Procedure Growth Status 05/10/20 02:12 Indwelling Cath Urine Culture - Preliminary NO GROWTH AFTER 24 HOURS Resulted 05/09/20 15:05 Blood Blood Culture - Preliminary NO GROWTH AFTER 24 HOURS Resulted 05/09/20 15:03 Urine,Clean Catch Urine Culture - Final Mixed Gram Positive Organism Complete 05/09/20 14:50 Blood Blood Culture - Preliminary NO GROWTH AFTER 24 HOURS Resulted Intake and Output 05/10/20 05/11/20 19:00 07:00 Intake Total 900 ml Output Total 800 ml Balance 100 ml Intake Oral 900 ml Output Urine Total 800 ml # Voids 3 Objective PHYSICAL EXAMINATION: GENERAL: The patient is awake, responsive, no acute distress. HEENT: Head and neck examination, pupils are equal and reactive to light. Extraocular movements are intact. Neck was supple. No JVD. LUNGS: Good air entry. No wheezing or rales. HEART: S1, S2. Regular rhythm. No murmur or gallops. ABDOMEN: Soft and nondistended. Tender on the suprapubic area on deep palpation. No rebound tenderness. No fluid shift. EXTREMITIES: No cyanosis, clubbing, or edema. NEUROLOGIC: Cranial nerves II through XII grossly normal. Motor is 5/5 in all extremities. Assessment/Plan Assessment/Plan ASSESSMENT: 1. urinary tract infection. 2. Possible proctitis. 3. HIV-off anti-retroviral therapy 4. Noncompliance with medication. PLAN: 1. Admit the patient to medical floor 2. antibiotic= Rocephin; await culture results 3. Code status is Full code 4. DVT prophylaxis = heparin subcutaneous. 5. Dr. Godoy= Pulmonary Critical Care 6. Dr. Izaguirre = Inf Dis 7. PATIENT LEFT AGAINST MEDICAL ADVISE Júnior Disla MD May 11, 2020 12:23
[2020-05-11] MEDS: cefTRIAXone 1 GM in D5W 55 ML IVPB SCH (13:00)
--- NOTE | 2020-05-11 13:41 | NUR ---
NURSE NOTES: Patient left hospital AMA. Patient in stable condition. recommended to stay one more day and explained risks and benefits. But patient still wanted to leave AMA. IV and ID removed. Instructed to follow up with PCP and verbalized understanding. Patient ambulated out with all personal belongings with steady gait. Addendum: 05/11/20 at 1417 by HERIBERTO CRAMER RN NURSE NOTES: Patient signed AMA paper.
--- NOTE | 2020-05-11 15:24 | Pulmonology Progress Note ---
Subjective ROS Limited/Unobtainable: No Allergies: Coded Allergies: SULFA (SULFONAMIDE ANTIBIOTICS) (Verified Allergy, Intermediate, rash, 05/09/20) Objective Last 24 Hour Vital Signs Date Time Temp Pulse Resp B/P (MAP) Pulse Ox O2 Delivery O2 Flow Rate FiO2 05/11/20 12:00 98.0 78 18 117/68 (84) 98 05/11/20 09:00 Room Air 05/11/20 08:00 97.4 87 18 100/69 (79) 97 05/11/20 00:00 97.6 83 17 114/75 (88) 100 05/10/20 21:00 Room Air 05/10/20 20:00 98.7 83 16 106/71 (83) 98 05/10/20 16:00 98.2 89 20 105/65 (78) 99 Intake and Output 05/10/20 05/11/20 19:00 07:00 Intake Total 900 ml Output Total 800 ml Balance 100 ml Intake Oral 900 ml Output Urine Total 800 ml # Voids 3 General Appearance: cachetic HEENT: normocephalic, atraumatic Respiratory: chest wall non-tender, lungs clear Cardiovascular: normal peripheral pulses, regular rhythm Abdomen: normal bowel sounds, soft, non tender Genitourinary: normal external genitalia Skin: no rash Neurologic: schedule planning manager II-XII grossly normal Microbiology Date/Time Source Procedure Growth Status 05/10/20 02:12 Indwelling Cath Urine Culture - Preliminary NO GROWTH AFTER 24 HOURS Resulted 05/09/20 15:05 Blood Blood Culture - Preliminary NO GROWTH AFTER 24 HOURS Resulted 05/09/20 15:03 Urine,Clean Catch Urine Culture - Final Mixed Gram Positive Organism Complete 05/09/20 14:50 Blood Blood Culture - Preliminary NO GROWTH AFTER 24 HOURS Resulted Laboratory Tests 05/11/20 04:45: White Blood Count 3.1L, Red Blood Count 4.92, Hemoglobin 14.1L, Hematocrit 42.3, Mean Corpuscular Volume 86, Mean Corpuscular Hemoglobin 28.6, Mean Corpuscular Hemoglobin Concent 33.3, Red Cell Distribution Width 10.8L, Platelet Count 346, Mean Platelet Volume 5.0L, Neutrophils (%) (Auto) , Lymphocytes (%) (Auto) , Monocytes (%) (Auto) , Eosinophils (%) (Auto) , Basophils (%) (Auto) , Lymphocytes [Pending], Erythrocyte Sedimentation Rate 113H, Sodium Level 139, Potassium Level 3.9, Chloride Level 106, Carbon Dioxide Level 25, Anion Gap 8, Blood Urea Nitrogen 11, Creatinine 1.1, Estimat Glomerular Filtration Rate > 60, Glucose Level 91, Calcium Level 8.4L, Phosphorus Level 2.7, Magnesium Level 2.1, Total Bilirubin 0.2, Aspartate Amino Transf (AST/SGOT) 17, Alanine Aminotransferase (ALT/SGPT) 16, Alkaline Phosphatase 51, C-Reactive Protein, Quantitative 2.7H, Total Protein 7.2, Albumin 2.7L, Globulin 4.5, Albumin /Globulin Ratio 0.6L, Percent CD3 Cells [Pending], Absolute CD3 Count [Pending], Percent CD4 Cells [Pending], Absolute CD4 Count [Pending], T-Lymphocyte CD4/CD8 Ratio [Pending], Percent CD8 Cells [Pending], Absolute CD8 Count [Pending], HIV-1 RNA (PCR) log10 Value [Pending], HIV-1 RNA Ultraquantitative (PCR) [Pending] Assessment/Plan Problems: (1) Cystitis (2) Proctitis (3) HIV (human immunodeficiency virus infection) Assessment/Plan doing better wan culture iv abx ID evaluation appreciated check electrolytes dvt prophylaxis/ Bambi Godoy MD May 11, 2020 15:24
--- NOTE | 2020-05-12 16:25 | NUR ---
CASE MANAGEMENT: CM review and clinical info (face sheet/ H&P /ER MD report/progress notes) faxed to [facility]ODGERS @ [phone]. Ref# [id number]
--- NOTE | 2020-05-13 13:37 | Discharge Summary ---
Discharge Summary Discharge Summary _ DATE OF ADMISSION: 05/09/2020 DATE OF DISCHARGE: 05/11/2020 Patient left AGAINST MEDICAL ADVICE REASON FOR ADMISSION: 40 years old male with past medical history of HIV, noncompliance with medication, no current CD4 count or viral load, presented to emergency department complaining of one week of dysuria, hematuria, pus in the stool and urine. Patient reported feeling very weak. Patient reported sharp pain in the suprapubic area. Patient also reported lower abdominal discomfort with defecation. He denied taking any medication for pain. In emergency department patient was tachycardic with heart rate 116 , no fevers. No leukocytosis . BUN 16, creatinine 1.8. Stable electrolytes. Troponin negative. Stable LFT. Lactic acid 1.3 Urinalysis revealed evidence of possible urinary tract infection. Chest x-ray revealed no acute cardiopulmonary pathology. CT of the abdomen and pelvis revealed mild bladder wall thickening , possibly due to cystitis Very questionable rectal wall thickening; mild proctitis possible. No acute abnormalities otherwise. Posterior dependent pulmonary atelectatic changes. Patient admitted with proctitis , cystitis ,HIV. CONSULTANTS: pulmonary /mattress specialist Dr. Godoy ID specialist Dr. Izaguirre [facility] COURSE: Patient admitted to medical surgical floor. Patient started on broad-spectrum antibiotics. Blood cultures were negative. Initial urine culture revealed mixed gram-positive organism Urine culture showed no evidence of growth. Per ID specialist , patient likely had STD : either gonorrhea or chlamydia . Patient was on empiric ceftriaxone; patient also received treatment with azithromycin 1 g p.o. x1. At the time of this dictation GC /CT still pending. CD4 count revealed absolute CD4 count of 18. Viral load still pending . Patient had no fever, no leukocytosis. Patient was explained that he will need to follow-up with outpatient HIV clinic to start ART therapy as well to start taking prophylactic medications for opportunistic infection . Patient felt better and decided to leave AGAINST MEDICAL ADVICE. The risks and consequences of signing AGAINST MEDICAL ADVICE were discussed with patient in detail. Patient verbalized understanding, nevertheless signed AMA form and left. FINAL DIAGNOSES: Possible sepsis Possible urinary tract infection Probably STD : chlamydia or gonorrhea ; status post treatment Possible proctitis HIV/AIDS CD4 18 Noncompliance with medication I have been assigned to dictate discharge summary for this account. I was not involved in the patient's management. Kristen Casillas NP May 13, 2020 13:37
--- NOTE | 2020-05-14 10:21 | NUR ---
INSURANCE DC SUMMARY FAXED TO [facility]AF[facility] RODGERS [phone]
--- NOTE | 2020-05-14 17:19 | Cardiology Report ---
APPROVED REPORT EKG Measurement Heart [id number] <Conclusion> Sinus tachycardia Voltage criteria for left ventricular hypertrophy T wave abnormality, consider lateral ischemia Abnormal ECG
== END 2020-05-11 13:41 | disposition left against medical advice (07) | DRG 892 ==
LOC: EMR 15:04 → 3E 16:35 → EDBEDREQ 18:18 → 3E 21:01
DX: A41.9 Sepsis, unspecified organism (principal); N39.0 Urinary tract infection, site not specified; B20 Human immunodeficiency virus [HIV] disease; K62.89 Other specified diseases of anus and rectum; Z88.2 Allergy status to sulfonamides; F17.200 Nicotine dependence, unspecified, uncomplicated; Z91.14 Patient's other noncompliance with medication regimen; A74.9 Chlamydial infection, unspecified; A54.9 Gonococcal infection, unspecified
CPT/HCPCS: 36415; 71045; 74177; 80053; 80202; 81001; 81003; 82550; 82553; 83605; 83735; 84100; 84484; 85025; 85651; 86140; 86360; 87040; 87086; 87491; 87536; 87590; 93005; 96361; 96365; 99285; J7030